=== PATIENT | female | born 1960 ===

== ENCOUNTER 2017-12-30 18:46 | Emergency (ER) | payer BC, OTHER ==
[2017-12-30 19:21] VITALS: O2SAT 99
--- NOTE | 2017-12-30 19:49 | ED PDOC ---
Upper Extremity Pain/Injury Time Seen by Provider: 12/30/17 19:23 Chief Complaint (Nursing): Upper Extremity Problem/Injury Chief Complaint (Provider): Upper Extremity Problem/Injury History Per: Patient History/Exam Limitations: no limitations Onset/Duration Of Symptoms: Days (x15) Current Symptoms Are (Timing): Still Present Additional Complaint(s): 57 y/o female with no significant PMHx presents to the ED complaining of right shoulder pain, since 2014. Patient reports pain began after heavy lifting objects while at work. Patient reports of taking Ibuprofen with not much relief. Patient states pain is worse with abduction. PMD: None Provided Past Medical History Reviewed: Historical Data, Nursing Documentation, Vital Signs Vital Signs: Last Vital Signs Temp 98 F 12/30/17 19:10 Pulse 62 12/30/17 19:10 Resp 18 12/30/17 19:10 BP 155/97 H 12/30/17 19:10 Pulse Ox 99 12/30/17 19:10 - Medical History PMH: No Chronic Diseases - Surgical History Surgical History: No Surg Hx - Family History Family History: States: Unknown Family Hx - Home Medications Home Medications: Ambulatory Orders Medication Instructions Recorded Ibuprofen [Motrin] 600 mg PO Q6 #20 tab 12/30/17 - Allergies Allergies/Adverse Reactions: Allergies Allergy/AdvReac Type Severity Reaction Status Date / Time No Known Allergies Allergy Verified 12/30/17 19:10 Review of Systems ROS Statement: Except As Marked, All Systems Reviewed And Found Negative Musculoskeletal: Positive for: Shoulder Pain (right) Physical Exam - Reviewed Nursing Documentation Reviewed: Yes Vital Signs Reviewed: Yes - Physical Exam Appears: Positive for: No Acute Distress Head Exam: Positive for: ATRAUMATIC, NORMOCEPHALIC Skin: Positive for: Normal Color, Warm, Dry Eye Exam: Positive for: Normal appearance, EOMI, PERRL ENT: Positive for: Normal ENT Inspection Neck: Positive for: Normal, Painless ROM Cardiovascular/Chest: Positive for: Regular Rate, Rhythm Respiratory: Positive for: Normal Breath Sounds. Negative for: Respiratory Distress Extremity: Positive for: Tenderness (to lateral aspect of shoulder) Neurologic/Psych: Positive for: Alert, Oriented (x3). Negative for: Motor/ Sensory Deficits - ECG O2 Sat by Pulse Oximetry: 99 (RA) Medical Decision Making Medical Decision Making: Time: 1941 Plan: -- Motrin 600 mg PO -- Right Shoulder XR XR: (+) mild DJD, NAD, as read by BARRY Scribe Attestation: Documented by Janelle Tapia, acting as a scribe for Tita Yeung PA-C. Provider Scribe Attestation: All medical record entries made by the Scribe were at my direction and personally dictated by me. I have reviewed the chart and agree that the record accurately reflects my personal performance of the history, physical exam, medical decision making, and the department course for this patient. I have also personally directed, reviewed, and agree with the discharge instructions and disposition. Disposition - Clinical Impression Clinical Impression: Shoulder pain - Patient ED Disposition Is Patient to be Admitted: No - Disposition Disposition: Routine/Home Disposition Time: 20:43 Condition: STABLE Prescriptions: Ibuprofen [Motrin] 600 mg PO Q6 #20 tab Instructions: Shoulder Pain (DC) Forms: [facility] (Nepali) - POA Present On Arrival: None
[2017-12-30 21:27] VITALS: BP 144/88; PULSE 64; RESP 16; TEMP 98
--- NOTE | 2017-12-31 08:52 | RAD ---
Date of service: 12/30/2017 PROCEDURE: Radiographs of the Right Shoulder HISTORY: pain, atraumtic COMPARISON: No prior. FINDINGS: BONES: No acute fracture or destructive bony lesion identified. JOINTS: No subluxation or dislocation. Limited degenerative changes seen at the acromioclavicular joint with the glenohumeral joint unremarkable. SOFT TISSUES: Normal. OTHER FINDINGS: None. IMPRESSION: No acute fracture or dislocation. Limited degenerative change acromioclavicular joint.
== END 2017-12-30 21:26 | disposition home or self-care (01) ==
LOC: H.ER 18:46
DX: M25.511 Pain in right shoulder (principal)

== ENCOUNTER 2018-02-20 15:31 | Emergency (ER) | payer OTHER ==
[2018-02-20 15:46] VITALS: PULSE 67; RESP 18
--- NOTE | 2018-02-20 16:03 | ED PDOC ---
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 Patient denies any vision or hearing loss. No fever or chills. No dizziness or headache. PMD: none Past Medical History Reviewed: Historical Data, Nursing Documentation, Vital Signs Vital Signs: Last Vital Signs Temp 98 F 02/20/18 15:45 Pulse 67 02/20/18 15:45 Resp 18 02/20/18 15:45 BP 137/83 02/20/18 15:45 Pulse Ox 99 02/20/18 15:45 - Medical History PMH: No Chronic Diseases - Surgical History Surgical History: - Family History Family History: States: No Known Family Hx - Living Arrangements Living Arrangements: With Family - Social History Current smoker - smoking cessation education provided: No Alcohol: None Drugs: Denies - Home Medications Home Medications: Ambulatory Orders Medication Instructions Recorded Ibuprofen [Motrin] 600 mg PO Q6 #20 tab 12/30/17 Ketotifen Fumarate [Zaditor] 5 ml OU BID #1 bottle 02/20/18 hydrOXYzine HCl [Atarax] 25 mg PO Q6H PRN #30 tab 02/20/18 - Allergies Allergies/Adverse Reactions: Allergies Allergy/AdvReac Type Severity Reaction Status Date / Time No Known Allergies Allergy Verified 02/20/18 15:45 Review of Systems ROS Statement: Except As Marked, All Systems Reviewed And Found Negative Constitutional: Negative for: Fever, Chills Eyes: Positive for: Other (itchiness to both eyes) ENT: Positive for: Other (itchiness to both ears) Cardiovascular: Negative for: Chest Pain Respiratory: Negative for: Cough Gastrointestinal: Negative for: Nausea, Vomiting Genitourinary Female: Negative for: Dysuria, Frequency Neurological: Negative for: Headache, Dizziness Physical Exam - Reviewed Nursing Documentation Reviewed: Yes Vital Signs Reviewed: Yes - Physical Exam Appears: Positive for: Well, Non-toxic, No Acute Distress Skin: Positive for: Normal Color. Negative for: Rash Eye Exam: Positive for: EOMI, PERRL, Conjunctival injection (Mild bilateral conjunctival injection to both eyes, no discharge bilaterally) ENT: Positive for: Normal ENT Inspection, TM Is/Are (TM's intact b/l) Cardiovascular/Chest: Positive for: Regular Rate, Rhythm Respiratory: Positive for: Normal Breath Sounds. Negative for: Wheezing, Respiratory Distress Extremity: Positive for: Normal ROM Neurologic/Psych: Positive for: Alert, Oriented - ECG O2 Sat by Pulse Oximetry: 99 Pulse Ox Interpretation: Normal Medical Decision Making Medical Decision Makin57 y/o with itching to eyes and ears Plan: Rx atarax and zaditor eye drops Patient was referred to clinic for follow up. Disposition - Clinical Impression Clinical Impression: Pruritus, Allergic conjunctivitis - Patient ED Disposition Is Patient to be Admitted: No Counseled Patient/Family Regarding: Diagnosis, Need For Followup, Rx Given - Disposition Referrals: [facility] [Outside] Disposition: Routine/Home Disposition Time: 16:00 Condition: STABLE Additional Instructions: Take rx meds as directed. Follow up with clinic. Prescriptions: hydrOXYzine HCl [Atarax] 25 mg PO Q6H PRN #30 tab PRN Reason: Itching / Pruritus Ketotifen Fumarate [Zaditor] 5 ml OU BID #1 bottle Instructions: Seasonal Allergies (DC), Itchy Skin Forms: [employer] (Japanese) Print Language: ITALIAN
[2018-02-20 16:06] VITALS: BP 114/71; TEMP 98.1
[2018-02-20 16:08] VITALS: O2SAT 99
== END 2018-02-20 16:33 | disposition home or self-care (01) ==
LOC: H.ER 15:31
DX: L29.9 Pruritus, unspecified (principal)